=== PATIENT | male | born 1975 | race Caucasian/White ===

== ENCOUNTER → 2021-02-21 08:26 | Outpatient (CLI) | payer BC, SELFPAY ==
--- NOTE | 2021-02-21 08:36 | XR_ITS ---
PROCEDURE: XR CERVICAL SPINE 5V CLINICAL INDICATION: ACUTE SPRAIN OF LIGAMENT OF NECK,INITIAL ENCOUNTER COMPARISON: No exams were available for comparison FINDINGS: There is normal alignment. No acute fracture or dislocation is evident. No cervical rib. No prevertebral soft tissue swelling. Minimal endplate spurring posteriorly at C5-C6 with minimal right-sided foraminal narrowing. IMPRESSION: No acute finding. Minimal degenerative change C5-C6 Dictated by: Kobi Laboy MD 02/21/2021 08:54 Kobi Laboy MD in [place] 02/21/2021 08:54
== END ==
PROVIDERS: PCP Family Medicine; Visit Provider Family Medicine
DX: S13.9XXA Sprain of joints and ligaments of unspecified parts of neck, initial encounter (principal)
CPT/HCPCS: 72050

== ENCOUNTER 2021-07-21 09:28 | Emergency (ER) | payer BC, SELFPAY ==
[2021-07-21 10:15] VITALS: BP 151/104; PULSE 78; RESP 14; TEMP 36.6; O2SAT 99; BMI 22.9
--- NOTE | 2021-07-21 10:20 | HMH.EDUTC ---
[facility] [place] Clinical Impression: COVID-19 virus test result unknown, Upper respiratory infection, viral Disposition: Home, Self-Care Condition on Discharge: Good Instructions: DI for COVID-19 (Suspected or Confirmed ) Additional Instructions: covid swab was sent to lab, call tomorrow for results. self isolate until test results are known to be negative No sign of a bacterial infection. Likely viral. Viruses can take 7-14 days to run their course. Nasal saline and bulb syringe or nose Rebecca to remove nasal drainage to help with nasal congestion. Hard to eat, drink, sleep with nasal congestion so important to keep this cleaned out. Monitor temp. Tylenol or Motrin as needed for pain or fever Encourage fluids, water, Gatorade, Powerade, Pedialyte if /toddler/child Warm salt water gargles Warm fluids Sore throat lozenges Sleep elevated Humidifier/vaporizer Follow-up immediately for new or worsening symptoms or no noticeable improvement over the next 48-72 hours. Referrals: Klaus Isabel MD [Primary Care Provider] - Time of Disposition: 10:24 Medical Decision Making - Morgan Inquiry Pt receiving controlled substance: No Vital Signs: 07/21/21 10:15 Temperature 97.9 F Temperature Source Temporal Artery Scan Pulse Rate [Left] 78 Respiratory Rate 14 Blood Pressure [Right Arm] 151/104 H Blood Pressure Mean [Right Arm] 119 02 Sat by Pulse Oximetry 99 Orders (Tests/Meds): ORDERS Category Date Time Status Covid-19 Nasal PCR ([facility]) Routine Lab 07/21/21 10:18 Ordered [facility] [place] - General Chief complaint: [facility] Stated complaint: covid test, symptoms Time Seen by Provider: 07/21/21 10:20 Mode of Arrival: Ambulatory Source of Information: Patient Limitations: No Limitations Description of Symptoms (Recalled from Triage Doc. by RN): pt c/o a MERCADO, myalgia and cough. HEENT Symptoms (Recalled from RN notes): Yes (MERCADO) Resp Symptoms (Recalled from RN notes): Yes (cough) Skin Symptoms (Recalled from RN notes): No MS Symptoms (Recalled from RN notes): No Functional Status (Recalled from RN notes): wnl - History of Present Illness Provider Complaint: 45 yr old male presents with c/o a MERCADO, myalgia and cough. request covid test - Related Data Allergies Allergy/AdvReac Type Severity Reaction Status Date / Time No Known Allergies Allergy Unknown Uncoded 06/17/17 15:26 - Worker's Comp Is this a Worker's Comp case?: No H History - Hepatitis A Screen Drug use history?: No High risk sexual behaviors?: No History of sexually transmitted infection?: No Currently employed?: No Childcare worker?: No Do you have indoor plumbing?: Yes Do you have electricity?: Yes Attestation statement:: This patient has been screened for Hepatitis A risk factors. I have reviewed the patient's past medical history: Yes ROS Obtained: Yes Systems reviewed as appropriate & no additional complaints - Constitutional Constitutional: Reports system reviewed and no additional complaints, except as docu, Denies fatigue, Denies fever(s) - Eyes Eyes: Reports system reviewed and no additional complaints, except as docu, Denies blurry vision - ENT Ears, Nose, Mouth, and Throat: Reports system reviewed and no additional complaints, except as docu, Reports headache(s) - Cardiovascular Cardiovascular: Reports system reviewed and no additional complaints, except as docu, Denies chest pain - Respiratory Respiratory: Reports system reviewed and no additional complaints, except as docu, Denies chest congestion - Gastrointestinal Gastrointestingal: Reports: system reviewed and no additional complaints, except as docu. Denies: abdominal pain - Genitourinary Male Genitourinary: Reports system reviewed and no additional complaints, except as docu - Musculoskeletal Musculoskeletal: Reports system reviewed and no additional complaints, except as docu, Denies joint pain - Integumentary/Breasts Skin/B
[2021-07-21 10:23] LABS: UTC Influenza A Antigen Negative (Negative); UTC Influenza B Antigen Negative (Negative)
[2021-07-21 10:30] VITALS: BP 151/104; PULSE 78; RESP 14; TEMP 36.6
== END 2021-07-21 10:30 | disposition home or self-care (01) ==
PROVIDERS: Emergency Provider Nurse Practitioner Family; PCP Family Medicine
DX: U07.1 COVID-19 (principal); J06.9 Acute upper respiratory infection, unspecified
CPT/HCPCS: 87804; 99202; C9803; G0463; U0003; U0005

== ENCOUNTER 2024-05-23 12:45 | Emergency (ER) | payer BC, SELFPAY ==
[2024-05-23 12:46] VITALS: BP 153/94; PULSE 87; RESP 18; TEMP 36.6; O2SAT 97; BMI 25.1
--- NOTE | 2024-05-23 12:55 | XR_ITS ---
PROCEDURE INFORMATION: Exam: XR Left Hand Exam date and time: 05/23/2024 12:58 PM Age: 48 years old Clinical indication: Injury or trauma; Other: Cut with knife; Laceration; Hand; Left; Additional info: Laceration from filet knife, palm of hand near 1st digit TECHNIQUE: Imaging protocol: Radiologic exam of the left hand. Views: 3 or more views. COMPARISON: No relevant prior studies available. FINDINGS: Bones/joints: No acute fracture or dislocation. Soft tissues: No radiopaque foreign body. IMPRESSION: No acute findings.
[2024-05-23] MEDS: cephALEXin 500MG CAPSULE 500 MG PO (13:40)
[2024-05-23] MEDS: TET/DIPHTH/PERT-ADULT 0.5ML SYRINGE 0.5 ML IM (13:41)
--- NOTE | 2024-05-23 13:42 | HMH.EDGENADL ---
Discharge Plan Disposition Patient Disposition: Home, Self-Care Prescriptions Prescriptions: New cephalexin 500 mg capsule 500 mg PO QID 5 Days Qty: 20 0RF Referrals Follow up/Referrals: Karen Haley MD [Primary Care Provider] - See instructions Activity Restrictions/Add. Instructions Additional Instructions/Restrictions: Please have your sutures removed in 10 days return with any spreading redness or pus coming from the wound or high fevers or other concerns. Please take your antibiotics to completion. Return with other concerns. Clinical Impressions Clinical Impression: Laceration of thumb Instructions Patient Instructions: DI for Skin Abscess Print Language Print Language: Eritrean Discharge ED Provider: Adriane Irving General Adult HPI General Chief complaint: Skin/Abscess/Foreign Body Stated complaint: AO cut on left thumb Time Seen by Provider: 05/23/24 13:08 Mode of Arrival: Ambulatory Source of Information: Patient Limitations: No Limitations Description of Symptoms (Recalled from ER Triage Doc. by RN): left hand laceration with a filet knife History of Present Illness HPI narrative: Patient is a 48-year-old male presenting today with a laceration to his left hand/thumb that he sustained while using a fillet knife working on a deer. The knife itself was very dirty he is not up-to-date on tetanus. He has no sensory or functional deficits from the injury. Related Data Previous Rx's ?Medication ?Instructions ?Recorded cephalexin 500 mg capsule 500 mg PO QID 5 days #20 caps 05/23/24 Allergies Allergy/AdvReac Type Severity Reaction Status Date / Time No Known Allergies Allergy Unknown Uncoded 06/17/17 15:26 [facility] Disclaimer: The information contained in this section may have been updated after the patient was seen, as this information can be updated by other users. Social History Smoking Status: Never smoker alcohol intake: never current occupational status: other ROS Obtained: Yes All systems reviewed & no additional complaints except as documented Physical Exam General General appearance: alert and in no apparent distress Respiratory Respiratory exam: Present normal lung sounds bilaterally Cardiovascular Cardiovascular exam: Present regular rate Extremities Exam Extremities exam: Present other (5 cm gaping laceration involving the subcutaneous and muscular layers of the hypothenar eminence and base of the left thumb he has normal extension and flexion and is neurovascular intact as well no evidence of tendinous injury) Neurological Exam Neurological exam: Present alert and oriented X3 Medical Decision Making Medical Records Screening: Per USPSTF and CDC recommendations, given the prevalence of disease in our region, it is our hospital?s policy to screen for HIV and viral Hepatitis for all patients aged 18 and over and those with ongoing risk factors. Morgan Inquiry Pt receiving controlled substance: No Vital Signs: 05/23/24 12:46 Temperature 97.9 F Temperature Source Oral Pulse Rate [Right] 87 Respiratory Rate 18 Blood Pressure [Right Arm] 153/94 H Blood Pressure Mean [Right Arm] 113 02 Sat by Pulse Oximetry 97 Oxygen Delivery Method Room Air Orders (Tests/Meds): ED MEDICATIONS Discontinued Medications Generic Name Dose Route Start Last Admin Trade Name Freq PRN Reason Stop Dose Admin Cephalexin HCl 500 mg 05/23/24 13:11 05/23/24 13:40 Cephalexin 500mg Capsule PO 05/23/24 13:12 500 mg ONCE ONE Administration Tetanus/Reduced Diphtheria/Acell Pertussis 0.5 ml 05/23/24 13:11 05/23/24 13:41 Tet/Diphth/Pert-Adult 0.5ml Syringe IM 05/23/24 13:12 0.5 ml .ONCE ONE Administration ORDERS Category Date Time Status XR hand LT min 3V Stat Exams 05/23/24 12:55 Taken Medical Decision Narrative: Patient with above history and physical clinically no evidence of a tendinous laceration. After the base of a bloodless field was noted I still do not note any evidence of tendinous laceration he appears to have complete function of the extensor tendons which is where the lacerations were near. Wound was extensively irrigated initial dose of Keflex was given in the emergency department and prophylactic antibiotics were given. Tetanus was updated. X-ray was performed which I personally interpreted shows no fractures or dislocations or any bony involvement. Return precautions emphasized after wound was repaired and dressing was applied and wound management discussed patient was discharged in stable condition. Procedures Laceration Laceration 1: Site: thumb and hand Side (If applicable): left Size (cm): 5 Description: linear Depth: involves subcutaneous layer and involves muscle layer Local Anesthetic: lidocaine 1% Amount of anesthesia used (mL): 8 Pre-repair: wound explored, irrigated extensively and deep structures intact Skin layer closed with: nylon Size (cm): 3-0 Technique: simple, interrupted Subcutaneous layer closed with: vicryl Size: 3-0 Critical Care Critical Care Time Critical Care Time: No
[2024-05-23] MEDS: MUPIROCIN 2% OINTMENT 22GM TUBE TP (13:51)
[2024-05-23 13:53] VITALS: BP 138/82; PULSE 66; RESP 18; TEMP 36.9; O2SAT 99
== END 2024-05-23 13:54 | disposition home or self-care (01) ==
PROVIDERS: Emergency Provider Student in an Organized Health Care Education/Training Program; PCP Family Medicine
DX: S61.019A Laceration without foreign body of unspecified thumb without damage to nail, initial encounter (principal); M79.642 Pain in left hand; Z23 Encounter for immunization; W26.0XXA Contact with knife, initial encounter; Y93.89 Activity, other specified; Y92.9 Unspecified place or not applicable
CPT/HCPCS: 73130; 90471; 90715; 99283